=== PATIENT | female | born 1955 | race Asian ===

== ENCOUNTER 2016-11-03 15:36 | Outpatient (CLI) | payer BC ==
[~2016-11-03] VITALS: Ht 160 cm; Wt 65.9 kg
[~2016-11-03 15:36] MED LIST: DEXILANT30 MG PO; PROLIA INJ 660 MG/M1 IJ; SALAGEN5 MG PO; TIROSINT25 MCG PO
[2016-11-03 15:57] VITALS: BP 121/65; Ht 160 cm; Wt 65.9 kg
--- NOTE | 2016-11-03 16:16 | NUR ---
PROLIA INJECTION TO LEFT ARM LOT#:[id number] EXP:11/25
== END 2016-11-03 16:19 | disposition home or self-care (01) ==
LOC: D.OPS 15:36
DX: M81.0 Age-related osteoporosis without current pathological fracture (principal)

== ENCOUNTER 2017-05-12 15:58 | Outpatient (CLI) | payer BC ==
[2017-05-12 16:41] VITALS: BP 107/68; BMI 25.7
== END 2017-05-12 16:45 | disposition home or self-care (01) ==
LOC: D.OPS 15:58
DX: M81.0 Age-related osteoporosis without current pathological fracture (principal)

== ENCOUNTER 2017-12-28 15:10 | Outpatient (CLI) | payer BC ==
[~2017-12-28] VITALS: Ht 160 cm; Wt 65.9 kg
[2017-12-28 16:05] VITALS: BP 119/76; Ht 160 cm; Wt 65.9 kg
== END 2017-12-28 16:16 | disposition home or self-care (01) ==
LOC: D.OPS 15:10
DX: M81.0 Age-related osteoporosis without current pathological fracture (principal)

== ENCOUNTER 2018-07-05 15:44 | Outpatient (CLI) | payer BC ==
[2017-12-28 16:05] VITALS: BMI 25.7
== END 2018-07-05 16:42 | disposition home or self-care (01) ==
LOC: D.OPS 15:44
DX: M81.0 Age-related osteoporosis without current pathological fracture (principal); Z01.812 Encounter for preprocedural laboratory examination

== ENCOUNTER 2019-01-10 15:40 | Outpatient (CLI) | payer OTHER ==
[~2019-01-10] VITALS: Ht 160 cm; Wt 63.6 kg
[2019-01-10 16:00] VITALS: BP 136/70; Ht 160 cm; Wt 63.6 kg
--- NOTE | 2019-01-10 16:06 | NUR ---
INJECTION GIVEN, CDI.
== END 2019-01-10 16:08 | disposition home or self-care (01) ==
LOC: D.OPS 15:40
PROVIDERS: ATTEND Family Medicine
DX: M18.0 Bilateral primary osteoarthritis of first carpometacarpal joints (principal)

== ENCOUNTER → 2019-07-13 14:50 | Outpatient (CLI) | payer OTHER ==
[~2019-07-13] VITALS: Ht 160 cm; Wt 65.9 kg
[2019-07-13 15:13] VITALS: BP 124/77; Ht 160 cm; Wt 65.9 kg
== END | disposition home or self-care (01) ==
LOC: D.OPS 06-29 13:00
PROVIDERS: ATTEND Family Medicine
DX: M81.0 Age-related osteoporosis without current pathological fracture (principal)

== ENCOUNTER 2020-02-08 12:04 | Outpatient (CLI) | payer OTHER ==
[~2020-02-08] VITALS: Ht 160 cm; Wt 65.9 kg
[2020-02-08 12:34] VITALS: BP 129/79; Ht 160 cm; Wt 65.9 kg
== END 2020-02-08 12:48 ==
LOC: D.OPS 12:04
PROVIDERS: ATTEND Family Medicine
DX: M81.0 Age-related osteoporosis without current pathological fracture (principal)